=== PATIENT | male | born 1970 | race Caucasian/White ===

== ENCOUNTER → 2017-12-04 07:23 | Outpatient (CLI) | payer BC, SELFPAY ==
[2017-12-04 10:47] LABS: AST(SGOT) 17 U/L (15-37); Alanine Aminotransfer ALT/SGPT 44 U/L (16-61); Albumin, Serum 3.7 g/dL (3.2-5.0); Alkaline Phosphatase 43 U/L (45-117); Anion Gap 8 (5-15); BUN 16 mg/dL (7-18); BUN/Creat Ratio 23.4 RATIO (10-20); Calcium,Total 8.7 mg/dL (8.5-10.1); Chloride 105 mmol/L (98-107); Cholesterol 150 mg/dL (200); Creatinine, Serum 0.68 mg/dL (0.70-1.30); EST Glomerular Filtration Rate 131 mL/min (>60); Est Glom Filt Rate - Afr Amer 158 mL/min (>60); Globulin 3.7 g/dL (2.2-4.2); Glucose 198 mg/dL (74-106); High Density Lipoprotein 30 mg/dL; Protein, Total 7.4 g/dL (6.4-8.2); Sodium Level 140 mmol/L (136-145); Triglycerides 417 mg/dL
== END ==
PROVIDERS: Family Provider Family Medicine; PCP Family Medicine; Visit Provider Family Medicine
DX: E11.9 Type 2 diabetes mellitus without complications (principal)
CPT/HCPCS: 36415; 80053; 80061

== ENCOUNTER → 2018-03-20 06:16 | Outpatient (CLI) | payer BC, SELFPAY ==
--- NOTE | 2018-03-20 15:17 | NEURO ---
NCS and/or EMG Patient Report Ordering Doctor: Kurt Pink DATE OF SERVICE: 03/20/18 Hilario Nguyen is a 47-year-old male presents for electrodiagnostic testing of the right upper limb. He reports numbness in the right arm radiating from the elbow to the hand. He has a history of right carpal tunnel release. Electrodiagnostic findings: The right median motor nerve demonstrates normal distal latency and amplitude. Normal right ulnar motor response normal median and ulnar F wave. Normal sensory responses. Needle EMG testing reveals 1+ fibrillations in the right deltoid, right infraspinatus and right mid cervical paraspinals. Decreased recruitment pattern is noted in the right deltoid. Electrodiagnostic impression: This is an abnormal study 1. Electrodiagnostic findings are consistent with an acue right C5 radiculopathy. Recommend correlation with cervical spine imaging. 2. No electrodiagnostic evidence is noted for peripheral neuropathy, including carpal tunnel or cubital tunnel syndrome. If there are any further questions, please not hesitate to contact me
== END ==
PROVIDERS: Family Provider Family Medicine; PCP Family Medicine; Referring Provider Family Medicine; Visit Provider Family Medicine
DX: M79.601 Pain in right arm (principal)
CPT/HCPCS: 95886; 95910

== ENCOUNTER → 2018-05-13 09:29 | Outpatient (CLI) | payer BC, SELFPAY ==
[2018-05-13 12:43] LABS: ALB/GLOB Ratio 1.1 RATIO (0.9-2.4); AST(SGOT) 26 U/L (15-37); Alanine Aminotransfer ALT/SGPT 54 U/L (16-61); Alkaline Phosphatase 50 U/L (45-117); Anion Gap 12 (5-15); BUN 19 mg/dL (7-18); Calcium,Total 9.2 mg/dL (8.5-10.1); Chloride 105 mmol/L (98-107); Cholesterol 151 mg/dL (200); Creatinine, Serum 0.76 mg/dL (0.70-1.30); EST Glomerular Filtration Rate 116 mL/min (>60); Est Glom Filt Rate - Afr Amer 140 mL/min (>60); Globulin 3.7 g/dL (2.2-4.2); Glucose 152 mg/dL (74-106); High Density Lipoprotein 31 mg/dL; Protein, Total 7.7 g/dL (6.4-8.2); Sodium Level 141 mmol/L (136-145); Triglycerides 345 mg/dL; Very Low Density Lipoprotein 69 mg/dL (5-40)
--- OUTSIDE RECORDS SUMMARY | 2018-07-06 13:34 | XMS RPT_ITS ---
:1970 Author Organization [facility] Care Team Providers Name Role Phone NEVILLE LUCAS Referring Unavailable Neville Lucas Attending Unavailable Neville Lucas Referring Unavailable Neville Lucas Primary Care Unavailable Neville Lucas Attending Unavailable Neville Lucas Referring Unavailable Neville Lucas Primary Care Unavailable Neville Lucas Attending Unavailable Neville Lucas Primary Care Unavailable PROBLEMS PROBLEMS No Problem Records FoundPROCEDURES PROCEDURES No Procedure Records FoundRESULTS RESULTS COMPREHENSIVE METABOLIC Collected: 05/13/2018 Status: F Source: [place] 9:31 AM [facility] REPOSITORY Order Comment: Order Date: 02/18/18 Order Info: [id number] - CMP Order Info: [id number] - LIPID TYPE CODE TESTS RESULT OUT OF RANGE REFERENCE UNITS LAB L501.0100 74-106 mg/dL High GLU 152 Result Comment: Fasting Glucose result greater than or equal to 126 mg/dL suggests DIABETES MELLITUS per A.D.A. criteria. Please note revised GLUCOSE reference range effective 2017. LAB L501.1000 7-18 mg/dL High BUN 19 LAB L501.1100 0.70-1.30 mg/dL Normal CREAT,SERUM 0.76 Result Comment: The validity of the calculated GFR AND GFRAA in patients over 70 years has not been determined. Clinical correlation is essential. LAB L501.1110 >60 mL/min Normal EST GFR 116 Result Comment: Non- GFR Calc LAB L501.1115 >60 mL/min Normal EST GFR - AA 140 Result Comment: GFR Calc LAB L501.1300 10-20 RATIO High BUN/CRE 25.0 LAB L501.1500 6.4-8.2 g/dL T Normal PROT 7.7 LAB L501.1800 3.2-5.0 g/dL Normal ALB 4.0 LAB L501.1950 2.2-4.2 g/dL Normal GLOB 3.7 LAB L501.2000 0.9-2.4 RATIO Normal A/G 1.1 LAB L501.2200 8.5-10.1 mg/dL CA Normal 9.2 LAB L501.4100 15-37 U/L Normal AST 26 LAB L501.4305 45-117 U/L Normal ALK P 50 LAB L501.4405 16-61 U/L Normal ALT 54 LAB L501.4600 0.20-1.00 mg/dL T Normal BILI 0.50 LAB L501.5300 136-145 mmol/L NA Normal 141 LAB L501.5600 3.5-5.1 mmol/L K Normal 4.0 LAB L501.5900 98-107 mmol/L CL Normal 105 LAB L501.6100 21.0-32.0 mmol/L Normal CO2 24.0 LAB L501.6200 5-15 Normal GAP 12 Performed By: #### L500.4050, L500.4100 #### [facility] [address] [place], [place], [address] LIPID PROFILE Collected: 05/13/2018 Status: F Source: [place] 9:31 AM [facility] REPOSITORY Order Comment: Order Date: 02/18/18 Order Info: [id number] - CMP Order Info: [id number] - LIPID TYPE CODE TESTS RESULT OUT OF RANGE REFERENCE UNITS LAB L501.4900 200 mg/dL Normal CHOL 151 Result Comment: <200 mg/dL Desirable 200-240 mg/dL Borderline >240 mg/dL High Risk LAB L501.5000 mg/dL High TRIG 345 Result Comment: The drugs N-Acetylcysteine and Metamizole may falsely depress this assay. Serum Triglycerides Reference Interval Normal <150 mg/dL Borderline high 150 - 199 mg/dL High 200 - 499 mg/dL Very High > or = 500 mg/dL LAB L501.6400 mg/dL Low HDL 31 Result Comment: The drugs N-Acetylcysteine and Metamizole may falsely depress this assay. Reference Range HDL <40 mg/dL Low HDL Cholesterol HDL >or= 60 mg/dL High HDL Cholesterol LAB L501.6500 0-130 mg/dL Normal LDL 51 LAB L501.6600 5-40 mg/dL High VLDL 69 Performed By: #### L500.4050, L500.4100 #### [facility] [address] [place], [address] NCS AND/OR EMG Observed: 03/20/2018 Status: F Source: [place] PATIENT 3:21 PM [facility] REPOSITORY [facility] Pulmonary Services/Neurology [address] [facility] [place] [address] MR#: [id number] Acct: [id number] Name: RADHA WASHBURN JR Rep #: [id number] : 1970 47 From: Tara Anaya MD Referring Dr: Neville Lucas MD Status: REG CLI Ordering Dr: Date: Location: [facility] Sex: M C NCS and/or EMG Patient Report Ordering Doctor: Kurt Lucas DATE OF SERVICE: 03/20/18 Radha Washburn is a 47-year-old male presents for electrodiagnostic testing of the right upper limb. He reports numbness in the right arm radiating from the elbow to the hand. He has a history of right carpal tunnel release. Electrodiagnostic findings: The right median motor nerve demonstrates normal distal latency and amplitude. Normal right ulnar motor response normal median and ulnar F wave. Normal sensory responses. Needle EMG testing reveals 1+ fibrillations in the right deltoid, right infraspinatus and right mid cervical paraspinals. Decreased recruitment pattern is noted in the right deltoid. Electrodiagnostic impression: This is an abnormal study 1. Electrodiagnostic findings are consistent with an acue right C5 radiculopathy. Recommend correlation with cervical spine imaging. 2. No electrodiagnostic evidence is noted for peripheral neuropathy, including carpal tunnel or cubital tunnel syndrome. If there are any further questions, please not hesitate to contact me 03/20/18 1521 <Electronically signed by Tara Anaya MD> Date Tara Anaya MD CC: Tara Anaya; Neville Lucas MD Date Dictated: 03/20/181516 Date Transcribed: 03/20/181516 Hydrographer: AA Signed MRI CERVICAL SPINE WO Observed: 12/04/2017 Status: F Source: [place] 8:39 AM [facility] REPOSITORY * * *Final Report* * * DATE OF EXAM: Dec 04 2017 8:39AM [facility] [id number] - MRI CERVICAL SPINE WO IVCON / PROCEDURE REASON: radiculopathy * * * * Physician Interpretation * * * * EXAMINATION: MRI CERVICAL SPINE WO IVCON CLINICAL HISTORY: Radiculopathy. Neck pain. History of transverse myelitis. TECHNIQUE: Routine cervical spine MR protocol without gadolinium. MQ: [id number] COMPARISON: 08/21/2007 RESULT: Counting reference: Craniocervical junction. Alignment: Alignment is anatomic and unchanged. Craniocervical junction: Alignment at the craniocervical junction is within normal limits. Cord: Again noted is a patchy focus of hyperintensity within the cord at the C1 level on T2 and IR which now appears to be eccentric to the right of midline and this is associated with mild attenuation in caliber of the cord in contrast to that seen previously. A small additional patchy focus of hyperintensity is noted along the right lateral margin of the cord at the level of the C5 vertebral body on the axial gradient echo images that may have been present previously but evaluation is limited. The cervical and visualized upper thoracic spinal cord is otherwise within normal limits of signal intensity and morphology. No gadolinium was administered. Bone marrow signal/fracture: No evidence of pathologic marrow infiltration. No evidence of prior fracture. Cervical soft tissues: The paraspinal soft tissues are within normal limits. C2-C3: Canal and foramina are patent. C3-C4: Canal and foramina are patent. C4-C5: Canal and foramina are patent. C5-C6: Mild disc osteophyte complex abutting the ventral surface of the cord without significant cord compression. Neural foramina remain patent. C6-C7: Canal and foramina are patent. C7-T1: Canal and foramina are patent. 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 Suspicion of additional small isolated plaque at the C5 level which may have been present previously but evaluation is limited on the earlier study. Otherwise no clear evidence of intramedullary demyelinating disease in the cervical and upper thoracic spinal cord. Mild canal stenosis at C5-6. Hydrographer: PSCB Transcribe Date/Time: Dec 04 2017 9:08A Dictated by : RICCO WHITING MD This examination was interpreted and the report reviewed and electronically signed by: RICCO WHITING MD on Dec 04 2017 9:15AM EST [id number] PROGRESS Observed: 12/04/2017 Status: COMPLETED Source: [place] 8:37 AM [facility] REPOSITORY HNO ID: [id number] Author: Perri Cast (Rt) Service: (none) Author Type: Digital Experience Manager Type: Progress Notes Filed: 12/04/2017 8:37 AM Note Text: Radiology Service Progress Note PATIENT NAME: Radha Washburn DATE OF SERVICE: December 04, 2017 TIME: 8:37 AM PATIENT IDENTITY VERIFICATION COMPLETED USING TWO (2) METHODS: Patient confirmed name verbally and Date of . PATIENT GENDER DATA: Male PATIENT RELEVANT IMPLANT DATA REVIEWED: Yes RADIOLOGY DEPARTMENT: MR; Exam(s) Completed: Spine: Cervical spine PERIPHERAL IV DATA: Not applicable SIGNED BY: RT Serene December 04, 2017 8:37 AM COMPREHENSIVE METABOLIC Collected: 12/04/2017 Status: F Source: [place] 7:29 AM [facility] REPOSITORY Order Comment: Order Date: 08/02/17 Order Info: [id number] - CMP Order Info: [id number] - LIPID TYPE CODE TESTS RESULT OUT OF RANGE REFERENCE UNITS LAB L501.0100 74-106 mg/dL High GLU 198 Result Comment: Fasting Glucose result greater than or equal to 126 mg/dL suggests DIABETES MELLITUS per A.D.A. criteria. Please note revised GLUCOSE reference range effective 2017. LAB L501.1000 7-18 mg/dL Normal BUN 16 LAB L501.1100 0.70-1.30 mg/dL Low CREAT,SERUM 0.68 Result Comment: The validity of the calculated GFR AND GFRAA in patients over 70 years has not been determined. Clinical correlation is essential. LAB L501.1110 >60 mL/min Normal EST GFR 131 Result Comment: Non- GFR Calc LAB L501.1115 >60 mL/min Normal EST GFR - AA 158 Result Comment: GFR Calc LAB L501.1300 10-20 RATIO High BUN/CRE 23.4 LAB L501.1500 6.4-8.2 g/dL T Normal PROT 7.4 LAB L501.1800 3.2-5.0 g/dL Normal ALB 3.7 LAB L501.1950 2.2-4.2 g/dL Normal GLOB 3.7 LAB L501.2000 0.9-2.4 RATIO Normal A/G 1.0 LAB L501.2200 8.5-10.1 mg/dL CA Normal 8.7 LAB L501.4100 15-37 U/L Normal AST 17 LAB L501.4305 45-117 U/L Low ALK P 43 LAB L501.4405 16-61 U/L Normal ALT 44 LAB L501.4600 0.20-1.00 mg/dL T Normal BILI 0.40 LAB L501.5300 136-145 mmol/L NA Normal 140 LAB L501.5600 3.5-5.1 mmol/L K Normal 4.0 LAB L501.5900 98-107 mmol/L CL Normal 105 LAB L501.6100 21.0-32.0 mmol/L Normal CO2 27.0 LAB L501.6200 5-15 Normal GAP 8 Performed By: #### L500.4050, L500.4100 #### [facility] [address] [place], [place], [address] LIPID PROFILE Collected: 12/04/2017 Status: F Source: [place] 7:29 AM [facility] REPOSITORY Order Comment: Order Date: 08/02/17 Order Info: [id number] - CMP Order Info: [id number] - LIPID TYPE CODE TESTS RESULT OUT OF RANGE REFERENCE UNITS LAB L501.4900 200 mg/dL Normal CHOL 150 Result Comment: <200 mg/dL Desirable 200-240 mg/dL Borderline >240 mg/dL High Risk LAB L501.5000 mg/dL High TRIG 417 Result Comment: The drugs N-Acetylcysteine and Metamizole may falsely depress this assay. TRIGLYCERIDE IS GREATER THAN 400 mg/dL. LDL RESULT IS INVALID AND WILL NOT BE REPORTED. Serum Triglycerides Reference Interval Normal <150 mg/dL Borderline high 150 - 199 mg/dL High 200 - 499 mg/dL Very High > or = 500 mg/dL LAB L501.6400 mg/dL Low HDL 30 Result Comment: The drugs N-Acetylcysteine and Metamizole may falsely depress this assay. Reference Range HDL <40 mg/dL Low HDL Cholesterol HDL >or= 60 mg/dL High HDL Cholesterol LAB L501.6500 0-130 mg/dL Test Normal not performed LDL LAB L501.6600 5-40 mg/dL Test Normal not performed VLDL Performed By: #### L500.4050, L500.4100 #### [facility] [address] [place], [address] ALLERGIES ALLERGIES DATE TYPE / CODE NAME / CODE REACTION SEVERITY SOURCE Drug NO KNOWN [facility] Class/12731 ALLERGIES [facility] 1003(SNOMED Repository CT) ENCOUNTERS ENCOUNTERS ADMIT/DISCHARGE ACCOUNT ADMITTING ENCOUNTER LOCATION SOURCE NUMBER CLASS 05/13/2018 [id number] [facility] ing:MFPLAB Repository 03/20/2018 [id number] [facility] ing:PSN Repository 12/04/2017/12/06/[id number] [place] Repository 12/04/2017 [id number] [facility] ing:MTLAB Repository PAYERS PAYERS ENCOUNTER GUARANTOR PAYER SUBSCRIBER SOURCE 05/13/2018 RADHA WASHBURN Primary RADHA Cano [address] Insurance:ANTHEMPolic JRDOB: [place] Number: [id number] Hospital [address]Hcy: (655) [id number] Repository [phone] () Date:[id number] [place] [id number]: 05/13/2018 Secondary NOT GIVENUNK [place] Insurance:SELF PAY [facility] Number: Effective Repository Date:2018-05-13 03/20/2018 RADHA WASHBURN Primary RADHA WASHBURN [id number] Insurance:ANTHEMPolic JRDOB: [facility] Number: [id number] [id number]: 330 [id number] Repository [phone] () Date:[id number] [address] [place] [address] [id number]: 03/20/2018 Secondary NOT GIVENUNK [place] Insurance:SELF PAY [facility] Number: Effective Repository Date:2018-02-26 12/04/2017 Radha Washburn Primary RADHA WASHBURN [id number] Insurance:ANTHEMPolic JRDOB: [facility] Number: [id number] [id number]: 330 [id number] Repository [phone] () Date:[id number] [id number] [place] [id number]: 12/04/2017 Secondary NOT GIVENUNK [place] Insurance:SELF PAY [facility] Number: Effective Repository Date:2017-12-04
== END ==
PROVIDERS: Family Provider Family Medicine; PCP Family Medicine; Visit Provider Family Medicine
DX: E11.9 Type 2 diabetes mellitus without complications (principal)
CPT/HCPCS: 36415; 80053; 80061

== ENCOUNTER → 2018-11-08 08:06 | Outpatient (CLI) | payer MEDICAID, SELFPAY ==
--- NOTE | 2018-11-08 09:12 | RAD_ITS ---
STUDY: X-RAY - CERVICAL SPINE REASON FOR EXAM: Male, 48 years old. Prior cervical fusion. Follow-up examination. TECHNIQUE: 3 view(s) of the cervical spine were obtained. COMPARISON: None FINDINGS: Normal anterior atlantoaxial articulation. Normal odontoid process. There is straightening of the normal cervical lordosis. The patient is status post anterior fusion at the C5-C6 level with a prosthetic disc. Normal disc space heights. Normal visualized intervertebral neuroforamina. The soft tissue structures are unremarkable. RAD/Cerv Spine 2 or 3 Views IMPRESSION: Status post fusion at the C5-C6 level with prosthetic disc. Electronically Signed: Trenton Machuca, at 14:54 EDT , Service support ,
[2018-11-08 10:54] LABS: ALB/GLOB Ratio 1.2 RATIO (0.9-2.4); AST(SGOT) 19 U/L (15-37); Alanine Aminotransfer ALT/SGPT 47 U/L (16-61); Alkaline Phosphatase 56 U/L (45-117); Anion Gap 9 (5-15); BUN 19 mg/dL (7-18); BUN/Creat Ratio 25.9 RATIO (10-20); Calcium,Total 9.1 mg/dL (8.5-10.1); Chloride 104 mmol/L (98-107); Cholesterol 162 mg/dL (200); Creatinine, Serum 0.73 mg/dL (0.70-1.30); EST Glomerular Filtration Rate 120 mL/min (>60); Est Glom Filt Rate - Afr Amer 145 mL/min (>60); Globulin 3.4 g/dL (2.2-4.2); Glucose 155 mg/dL (74-106); High Density Lipoprotein 35 mg/dL; Potassium 3.9 mmol/L (3.5-5.1); Protein, Total 7.4 g/dL (6.4-8.2); Sodium Level 141 mmol/L (136-145); Triglycerides 308 mg/dL; Very Low Density Lipoprotein 62 mg/dL (5-40)
== END ==
PROVIDERS: Family Provider Family Medicine; PCP Family Medicine; Referring Provider Family Medicine; Visit Provider Family Medicine
DX: M50.30 Other cervical disc degeneration, unspecified cervical region (principal); E11.9 Type 2 diabetes mellitus without complications; E78.5 Hyperlipidemia, unspecified; Z98.1 Arthrodesis status
CPT/HCPCS: 36415; 72040; 80053; 80061

== ENCOUNTER → 2019-10-14 08:16 | Outpatient (CLI) | payer OTHER, MEDICAID, SELFPAY ==
[2019-10-14 10:12] LABS: ALB/GLOB Ratio 1.1 RATIO (0.9-2.4); AST(SGOT) 15 U/L (15-37); Alanine Aminotransfer ALT/SGPT 41 U/L (16-61); Albumin, Serum 3.9 g/dL (3.2-5.0); Alkaline Phosphatase 50 U/L (45-117); Anion Gap 5 (5-15); BUN 19 mg/dL (7-18); BUN/Creat Ratio 26.6 RATIO (10-20); Calcium,Total 9.2 mg/dL (8.5-10.1); Chloride 107 mmol/L (98-107); Cholesterol 167 mg/dL (200); Creatinine, Serum 0.71 mg/dL (0.70-1.30); EST Glomerular Filtration Rate 124 mL/min (>60); Est Glom Filt Rate - Afr Amer 149 mL/min (>60); Globulin 3.5 g/dL (2.2-4.2); Glucose 162 mg/dL (74-106); High Density Lipoprotein 35 mg/dL; Potassium 3.8 mmol/L (3.5-5.1); Protein, Total 7.4 g/dL (6.4-8.2); Sodium Level 140 mmol/L (136-145); Thyroid Stim Hormone (TSH) 1.43 uIU/mL (0.358-3.74); Triglycerides 269 mg/dL; Very Low Density Lipoprotein 54 mg/dL (5-40)
== END ==
PROVIDERS: PCP Family Medicine; Referring Provider Family Medicine; Visit Provider Family Medicine
DX: E11.9 Type 2 diabetes mellitus without complications (principal); E78.5 Hyperlipidemia, unspecified
CPT/HCPCS: 36415; 80053; 80061; 84403; 84443

== ENCOUNTER → 2020-02-13 | Outpatient (CLI) | payer OTHER, MEDICAID, SELFPAY ==
--- NOTE | 2020-02-13 | COLBX_PTH ---
PATIENT: RADHA WASHBURN Jr. LOC: [facility] U#:[id number] AGE/SX: 49/M ROOM: RE02/13/[address]: Dr. Héctor Eason MD : 1970 BED: DIS: 02/13/2020 SPEC #: [id number] RECD: 02/13/20 15:02 STATUS: YEYO ZAID #: [id number] AZAM: 02/13/20 00:[address]: Héctor Eason DEPT: SURGICAL PATHOLOGY RECD BY: Jose Saini ENTERED: 02/17/20 08:34 SP TYPE: COLON BX OTHR DR: Dr. Neville Pink MD [facility] Tissues: Sigmoid colon biopsy Procedures: Surgery Specimen Level IV HEADER OPERATION: Colonoscopy with biopsy PRE-OP DIAGNOSIS: Screening / polyp TISSUE SUBMITTED: Sigmoid colon polyp 25 cm MICROSCOPIC DIAGNOSIS Sigmoid colon polyp at 25 cm, biopsy: Tubular adenoma. Hyperplastic polyp. SJ:zahida 02/18/20 MICROSCOPIC DESCRIPTION Slides are reviewed. GROSS DESCRIPTION Received in fixative is one container labeled with the patient's name and designated sigmoid polyp at 25 cm. The specimen consists of three variably sized pieces of rodríguez-pink soft tissue measuring in aggregate 1.5 x 05 x 0.3 cm. The specimen is totally submitted in one cassette. / SJ:rg 02/17/20 TC:1 CPT: 68351
== END | disposition home or self-care (01) ==
LOC: LABSPEC 15:25
PROVIDERS: PCP Family Medicine; Referring Provider Internal Medicine Gastroenterology; Visit Provider Internal Medicine Gastroenterology
DX: Z12.11 Encounter for screening for malignant neoplasm of colon (principal); D12.5 Benign neoplasm of sigmoid colon; K63.5 Polyp of colon
CPT/HCPCS: 88305

== ENCOUNTER → 2020-04-07 06:29 | Outpatient (CLI) | payer OTHER, MEDICAID, SELFPAY ==
--- NOTE | 2020-04-07 06:44 | MRI_ITS ---
STUDY: MRI CERVICAL SPINE WITHOUT CONTRAST REASON FOR EXAM: Male, 49 years old. h/o transverse myellitis, cervical fusion now c/o R arm issues TECHNIQUE: Standardized fat and water weighted pulse sequences were obtained in the sagittal and axial planes. COMPARISON: 02/15/2007 FINDINGS: There is stable spinal cord hyperintensity posterior to C2. This lesion is dorsal and visualized on sagittal sequences only. There is no evidence of cord expansion. There are no demonstrated new lesions There is straightening of the normal cervical lordosis. C2-3: Normal endplates. Normal disc height, signal and morphology. Normal central canal and intervertebral neural foramina. C3-4: Normal endplates. Normal disc height, signal and morphology. Normal central canal and intervertebral neural foramina. C4-5: There is minimal disc space narrowing and endplate spondylosis. There is no significant disc herniation, central canal or foraminal stenosis. C5-6: There is now instrumented anterior fusion. There is no significant disc herniation, spinal canal or foramina stenosis. C6-7: There is minimal disc space narrowing and endplate spondylosis. There is no significant disc herniation, central canal or foraminal stenosis. C7-T1: Normal endplates. Normal disc height, signal and morphology. Normal central canal and intervertebral neural foramina. MRI/Spine Cervical (Routine) IMPRESSION: Stable spinal cord lesion at C1. No significant central canal or foraminal stenosis. C5/C6: Anterior fusion. Electronically Signed: Daniel Chandler MD at 15:55 EDT Tel , Service support ,
== END ==
PROVIDERS: PCP Family Medicine; Referring Provider Family Medicine; Visit Provider Family Medicine
DX: M54.12 Radiculopathy, cervical region (principal)
CPT/HCPCS: 72141

== ENCOUNTER → 2020-04-22 | Outpatient (CLI) | payer OTHER, MEDICAID, SELFPAY | END | disposition home or self-care (01) | LOC: LABSPEC 15:59 | PROVIDERS: PCP Family Medicine; Referring Provider Family Medicine; Visit Provider Family Medicine | DX: U07.1 COVID-19 (principal) | CPT/HCPCS: 87635; U0003 ==

== ENCOUNTER → 2020-06-08 08:03 | Outpatient (CLI) | payer OTHER, MEDICAID, SELFPAY ==
[2020-06-08 10:22] LABS: Anion Gap 5 (5-15); BUN 22 mg/dL (7-18); BUN/Creat Ratio 35.3 RATIO (10-20); Calcium,Total 9.8 mg/dL (8.5-10.1); Chloride 104 mmol/L (98-107); Cholesterol 185 mg/dL (200); Creatinine, Serum 0.62 mg/dL (0.70-1.30); EST Glomerular Filtration Rate 144 mL/min (>60); Est Glom Filt Rate - Afr Amer 174 mL/min (>60); Glucose 133 mg/dL (74-106); High Density Lipoprotein 43 mg/dL; PSA,Total - Annual Screen 0.71 ng/mL (0.00-4.00); Potassium 4.2 mmol/L (3.5-5.1); Sodium Level 138 mmol/L (136-145); Triglycerides 298 mg/dL; Very Low Density Lipoprotein 60 mg/dL (5-40)
== END ==
PROVIDERS: PCP Family Medicine; Referring Provider Family Medicine; Visit Provider Family Medicine
DX: E11.9 Type 2 diabetes mellitus without complications (principal); Z12.5 Encounter for screening for malignant neoplasm of prostate
CPT/HCPCS: 36415; 80048; 80061; 84153; G0103

== ENCOUNTER → 2020-06-08 17:43 | Outpatient (CLI) | payer OTHER, MEDICAID, SELFPAY ==
--- NOTE | 2020-06-08 17:46 | MRI_ITS ---
Right shoulder pain and decreased range of motion MRI EXAMINATION OF [facility] SHOULDER COMPARISON: None TECHNIQUE: coronal fat-suppressed proton density, fat-suppressed T2, axial fat-suppressed proton density and T2 and sagittal T2 weighted images # of images including paperwork:137 FINDINGS: Bones: No evidence of an acute fracture. There are subchondral cysts seen involving the anterior inferior glenoid. Marrow edema is seen at the inferior half of the glenoid at the articular surface Rotator cuff: The supraspinatus and infraspinatus tendons are intact. The teres minor tendon is also intact. There is thickening of the subscapularis tendon suspect for tendinosis. No discrete tear is noted. No evidence of muscle atrophy Coracoacromial arch and Acromioclavicular joint: The acromion demonstrates Bigliani Type 2 morphology. There is mild acromioclavicular arthropathy. No significant fluid is seen within the subacromial subdeltoid bursa. The coracoacromial ligament is not thickened. The humeral distance is maintained. The Caraco humeral distance is maintained Biceps tendon: The extraarticular tendon is within the bicipital groove.there is minimal fluid surrounding the tendon that can be seen with tenosynovitis of that can also be seen secondary to fluid in the joint space. Slight increased signal on fluid-weighted images within the intra-articular tendon suggesting tendinosis. The short head of the biceps tendon is unremarkable Glenohumeral joint and labrum: There is a joint effusion. Probable degenerative posterior labrum seen on axial image 7 and coronal image 7. There is diffuse articular cartilage loss with full-thickness articular cartilage loss seen at the anterior inferior glenoid extending approximately 3 mm craniocaudad and approximately 5 mm transverse. The anterior and posterior bands of the inferior glenohumeral ligament appear intact. There is a small joint effusion present. CONCLUSION: Probable tendinosis involving the subscapularis tendon. No atrophy There is a small joint effusion Articular cartilage loss is seen at the anterior inferior glenoid with sub-chondral edema that is seen at the inferior aspect of the glenoid. Probable degenerative tear involving the posterior inferior labrum There may be mild synovitis Minimal acromioclavicular arthropathy Small medial inferior humeral head spur. Tendinosis of the intra-articular bicipital tendon There is fluid surrounding the extra-articular tendon that may be secondary to joint effusion versus tenosynovitis at 0451 Reported and signed by: Nancy Peterson DO Electronically Signed: Nancy Peterson DO at 4:49 EST Tel , Service support , MRI/Upper Ext Joint Only(Routine)
== END ==
PROVIDERS: PCP Family Medicine; Referring Provider Family Medicine; Visit Provider Family Medicine
DX: M25.511 Pain in right shoulder (principal)
CPT/HCPCS: 73221

== ENCOUNTER 2020-08-27 07:00 | Outpatient (RCR) | payer OTHER, MEDICAID, SELFPAY ==
--- NOTE | 2020-07-09 16:36 | HP.PTEVAL_ITS ---
Patient's Visit Information RADHA WASHBURN Jr. is a 49 year old M referred to Physical Therapy by Dr. Kurt Pink MD with a diagnosis of RT SHLD PAIN. Date of Evaluation: 07/09/20 Physical Therapist: Carleen Corona PT, Cert MDT - Visit Plan Frequency: 1x/Week Duration: 4-6 Weeks Plan: POSTURE CORRECTION/STRENGTHENING, INSTRUCTION IN APPROPRIATE BODY MECHANICS AND ACTIVITY MODIFICATIONS. ESTELLE UE ROM, STRETCHING AND STRENGTHENING. HEP INSTRUCTION. PATIENT REPORTS HE TRAVELS A LOT FOR WORK AND CAN ONLY COME TO PT ONE TIME A WEEK. - Subjective Diagnosis: RIGHT SHOULDER PAIN. Work/Leisure: AFTERSCHOOL BABYSITTER. PHYSICAL JOB. LUGS AROUND TOOL BOXES WEIGHING 80 TO 90 LBS EA. Disability: ON DIS[facility] - 20%. Present symptoms: PAIN IN RIGHT SHOULDER. NO NECK PAIN. CONSTANT RIGHT UE NUMBNESS FROM THE ELBOW DOWN SINCE 2005 (UNRELATED?). Present since: ABOUT 6 MONTHS AGO. Pain Scale: Worst - 12/10 Least - 2/10. Currently: 07/21. Commenced as a result of: NO APPARENT REASON. Symptoms at onset: SAME. Worse: RAISING RIGHT ARM UP, REACHING OUT FORWARD, REACHING BEHIND HEAD. Better: SITTING RELAXES - NOT MOVING IT. Disturbed sleep: YES. 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 EFFECTED RIGHT UE BUT ALL SX'S RESOLVED EXCEPT NUMBNESS FROM THE RIGHT ELBOW DOWN. WENT TO PAIN MGMT AND DX'D WITH PINCHED NERVE, HAD MRI, INJECTIONS AND IT DIDN'T HELP. 2018 WAS IN A LOT OF PAIN WITH NECK PAIN AND SX'S ALL THE WAY DOWN THE RIGHT UE WHICH LED TO NECK FUSION JUL [address] JAXSON CHAVEZ. PATIENT REPORTS HE THINKS HIS NECK AND RIG HT UE SX'S INCLUDING THE NUMBNESS IS SLOWLY GETTING SOME BETTER. H/O LEFT SHLD PAIN AND MILD TEAR OF ROTATOR CUFF 2013 - UNREPAIRED - CORTISONE SHOT AND PT HELPED. NO CURRENT ISSUES WITH L SHLD. This episode: CORTISONE RIGHT SHLD THAT HELPED FOR ABOUT 2 WEEKS ONLY - IT REALLY DIDN'T DUE MUCH OF ANYTHING. PT CONSULT ORDERED. R SHLD ORTHO CONSULT ALSO ORDERED BUT PATIENT REPORTS HE HAS DECLINED SETTING IT UP UNTIL HE GOES THROUGH PT FIRST. Dizziness: NO. Tinnitis: NO. Nausea: NO. Shortness of Breath: NO. Difficulty Swollowing: NO. Gait: NORMAL. Accidents: NO. Unexplained weight loss: NO. Imaging: RECENT RIGHT SHLD MRI - SEE [facility] EMR SHOWING MULTIPLE POSTIVE FINDINGS. PMH/Recent major surgery: MAR 2020 COVID - NOT HOSPITALIZED. OTHER: PATIENT REPORTS HE REALLY IS HAVING A LOT OF PAIN IN THE FRONT OF HIS RIGHT SHOULDER AND THAT IS WHY HE IS HERE. - Objective Sitting Posture/Standing Posture: POOR. FH. RS'S. Other Observations: INDEP GAIT AND TRANSFERS. Motor deficit: L UE WFL. RIGHT SHLD FLEX 3+/5, ABD 3-/5, ER 2+/5, IR 4/5, ELBOW 4/5, SLUICE TENDER 60LBS. ESTELLE SLUICE TENDER 60LBS. Sensory deficit: ESTELLE UE LIGHT TOUCH SENSATION APPEARS INTACT AND SYMMETRICAL BUT PATIENT REPORTS STILL FEELING NUMBNESS IN THE RIGHT UE FROM THE ELBOW DOWN. HE REPORTS HIS RIGHT UE SENSATION HAS BEEN IMPROVING SINCE HIS NECK FUSION. ROM deficit: LEFT UE WFL. RIGHT UE AROM WFL BUT PAINFUL EXCEPT R SHLD IR LIMITED TO APPROX 25 DEG IN LYING WITH SHLD ABD 80 DEG. Postural strength: POOR. Palpation: NO ACUTE TENDERNESS WITH PALPATION OF RIGHT SHOULDER REGION. - Goals Goal 1:: DECREASE C/O RIGHT SHOULDER PAIN Goal Time Frame: 4-6 Weeks Goal 2:: IMPROVE RIGHT UE FUNCTIONAL ROM Goal Time Frame: 4-6 Weeks Goal 3:: IMPROVE RIGHT UE FUNCTIONAL STRENGTH Goal Time Frame: 4-6 Weeks Goal 4:: PATIENT WILL BE INDEP WITH A HEP FOR CONTINUED IMPROVEMENT ONCE FORMAL PHYSICAL THERAPY CONCLUDES. Goal Time Frame: 4-6 Weeks - Anticipated Interventions Patient/Client Instruction: Educate patient on: Condition, Plan of Care, Risk Factors, Benefits of Fitness Program For the Purpose of:: To improve self management Therapeutic Exercise to Include: Strength training, Body mechanics, Postural training, Flexibilty training, Neuromotor development, Passive ROM, Active ROM, Scapular Strength/Stabilization For the Purpose of:: To decrease pain, To increase ROM, To improve muscle performance and motor function, To increase tolerance to activit y/condition/position, To improve ability of physical actions for home/community/work/leisure Cryotherapy (ice pack, ice massage): Yes Thermo therapy (hot pack): Yes For the Purpose of:: To decrease pain, To decrease swelling/inflammation, To improve nutrient delivery to tissue Thank you for the opportunity to evaluate your patient. For Medicare and Medicare HMO plans, please review the plan of care and approve it. It will need to be FAXED BACK to us at [phone] for Medicare purposes. For Medicare only, by signing this I certify the plan of care. Please let me know if there are questions or concerns regarding this plan of care. Physician Signature: Date:
--- NOTE | 2020-08-27 08:39 | HP.PTDCSUM ---
It has been my pleasure to treat RADHA WASHBURN Jr. referred by Dr. Kurt Pink MD, with the diagnosis of RT SHLD PAIN for a total of 5 visit(s). Discharge Date: 08/27/20 Please see the following information for a summary of their discharge status. Subjective: PATIENT REPORTS HE IS DOING A LOT BETTER. STATES HE IS DOING GOOD NOW AND IS GOING TO BE GONE FOR TWO WEEKS AGAIN FOR WORK. STATES HE HAS BEEN SWIMMING AND THAT IS HELPING A LOT. ALSO REPORTS HE IS DOING HIS HEP. NO PAIN RIGHT NOW - JUST TIGHTNESS. STATES IT DOES GET THIGHT IF HE ACCIDENTALLY SLEEPS ON IT. STATES SWIMMING HAS REALLY HELPED. STATES HE IS EXHAUSTED TODAY AND DOES NOT WANT TO EX. JUST WANTS ICE AND FEELS READY TO BE DISCHARGED. I ACTUALLY FEEL LIKE MY FINE MOTOR SKILLS IN MY RIGHT HAND ARE GETTING BETTER. ABLE TO ACTUALLY ADJUST SMALL SCREWS WITH R HAND BETTER. % Improvement: 80 Objective/Function: REVIEWED HEP AND. PATIENT WAS SEEN TODAY FOR RE-ASSESSMENT OF PROGRESS TOWARD THE SET PT GOALS AND THE NEED FOR FURTHER PHYSICAL THERAPY VS READINESS FOR DISCHARGE. PATIENT IS INDEP WITH A HEP AND ALL GOALS HAVE BEEN MET. UPON EXAM TODAY: Motor deficit: L UE WFL. RIGHT SHLD FLEX 4/5, ABD 4/5, ER 4/5, IR 5/5, ELBOW 5/5, SENIOR BOOKKEEPER 60LBS. ESTELLE SENIOR BOOKKEEPER 60LBS. Sensory deficit: ESTELLE UE LIGHT TOUCH SENSATION APPEARS INTACT AND SYMMETRICAL BUT PATIENT REPORTS STILL FEELING NUMBNESS IN THE RIGHT UE FROM THE ELBOW DOWN. HE REPORTS HIS RIGHT UE SENSATION HAS BEEN IMPROVING SINCE HIS NECK FUSION. ROM deficit: LEFT UE WFL. RIGHT UE AROM WFL BUT PAINFUL EXCEPT R SHLD IR LIMITED TO APPROX 57 DEG IN LYING WITH SHLD ABD 90 DEG. Postural strength: POOR. Palpation: NO ACUTE TENDERNESS WITH PALPATION OF RIGHT SHOULDER REGION. OTHER: INSTRUCTED IN ADDED SLEEPER STRETCH FOR IR STRETCHING. CP TO R SHLD IN SITTING X 8 MIN. Goal 1:: DECREASE C/O RIGHT SHOULDER PAIN Goal Progress: Goal Met Goal 2:: IMPROVE RIGHT UE FUNCTIONAL ROM Goal Progress: Goal Met Goal 3:: IMPROVE RIGHT UE FUNCTIONAL STRENGTH Goal Progress: Goal Met Goal 4:: PATIENT WILL BE INDEP WITH A HEP FOR CONTINUED IMPROVEMENT ONCE FORMAL PHYSICAL THERAPY CONCLUDES. Goal Progress: Goal Met Plan: D/C TO HEP. PATIENT IS AGREEABLE. If there are questions or concerns regarding this patient's physical therapy, please feel free to call me at [phone]. Thank you for the referral of this patient. Sincerely, Carleen Corona PT, Cert MDT
== END 2020-08-27 19:00 | disposition home or self-care (01) ==
LOC: PT 07:00
PROVIDERS: PCP Family Medicine; Referring Provider Family Medicine; Visit Provider Family Medicine
DX: M25.511 Pain in right shoulder (principal)
CPT/HCPCS: 97110; 97162; 97164

== ENCOUNTER → 2020-09-29 10:13 | Outpatient (CLI) | payer OTHER, MEDICAID, SELFPAY ==
--- NOTE | 2020-09-29 10:15 | RAD_ITS ---
STUDY: X-RAY - LEFT HAND REASON FOR EXAM: Male, 49 years old. Hand pain. TECHNIQUE: 3 view(s) of the hand. COMPARISON: None. FINDINGS: Normal radiocarpal articulation. Normal distal radioulnar joint. Normal visualized carpal bones. Normal carpal articulations Normal carpometacarpal articulation of the thumb. Normal second through fifth carpometacarpal joints. Normal metacarpi. Normal metacarpophalangeal joint of the thumb. Normal interphalangeal joint of the thumb. Normal proximal and distal phalanges of the thumb. Normal metacarpophalangeal joints of the second through fifth fingers. Normal proximal and distal interphalangeal joints of the second through fifth fingers. Normal phalanges of the second through fifth fingers. The soft tissue structures are unremarkable. RAD/Hand Min 3 Views IMPRESSION: No abnormality of the left hand. Electronically Signed: Adiel Sam MD at 15:28 EDT , Service support ,
== END ==
PROVIDERS: PCP Family Medicine; Referring Provider Family Medicine; Visit Provider Family Medicine
DX: M79.642 Pain in left hand (principal)
CPT/HCPCS: 73130

== ENCOUNTER → 2021-02-19 07:17 | Outpatient (CLI) | payer BC, MEDICAID, SELFPAY ==
[2021-02-19 08:56] LABS: AST(SGOT) 32 U/L (15-37); Alanine Aminotransfer ALT/SGPT 48 U/L (16-61); Alkaline Phosphatase 57 U/L (45-117); Anion Gap 5 (5-15); BUN 20 mg/dL (7-18); BUN/Creat Ratio 25.4 RATIO (10-20); Calcium,Total 9.5 mg/dL (8.5-10.1); Chloride 106 mmol/L (98-107); Cholesterol 176 mg/dL (200); Creatinine, Serum 0.79 mg/dL (0.70-1.30); EST Glomerular Filtration Rate 110 mL/min (>60); Est Glom Filt Rate - Afr Amer 133 mL/min (>60); Glucose 164 mg/dL (74-106); High Density Lipoprotein 35 mg/dL; Sodium Level 140 mmol/L (136-145); Thyroid Stim Hormone (TSH) 1.38 uIU/mL (0.358-3.74); Triglycerides 754 mg/dL
[2021-02-21 08:46] LABS: Vitamin B12 714 pg/mL (211-911)
== END ==
PROVIDERS: PCP Family Medicine; Referring Provider Family Medicine; Visit Provider Family Medicine
DX: E11.65 Type 2 diabetes mellitus with hyperglycemia (principal); Z12.5 Encounter for screening for malignant neoplasm of prostate
CPT/HCPCS: 36415; 80053; 80061; 82607; 84403; 84443

== ENCOUNTER → 2021-05-10 07:01 | Outpatient (CLI) | payer BC, MEDICAID, SELFPAY ==
[2021-05-10 10:18] LABS: Cholesterol 182 mg/dL (200); High Density Lipoprotein 33 mg/dL; Triglycerides 410 mg/dL
== END ==
PROVIDERS: PCP Family Medicine; Referring Provider Family Medicine; Visit Provider Family Medicine
DX: E11.69 Type 2 diabetes mellitus with other specified complication (principal)
CPT/HCPCS: 36415; 80061

== ENCOUNTER 2021-06-13 11:39 | Outpatient (RCR) | payer BC, MEDICAID, SELFPAY | END 2021-07-11 23:59 | LOC: DC 11:39 | PROVIDERS: PCP Family Medicine; Visit Provider Family Medicine | DX: E11.9 Type 2 diabetes mellitus without complications (principal); Z71.3 Dietary counseling and surveillance | CPT/HCPCS: 97802 ==

== ENCOUNTER → 2023-02-19 | Outpatient (CLI) | payer OTHER, MEDICAID, SELFPAY ==
--- NOTE | 2023-02-19 16:52 | RAD_ITS ---
STUDY: X-RAY - RIGHT ANKLE REASON FOR EXAM: Male, 52 years old. Pain TECHNIQUE: 3 view(s) of the ankle. COMPARISON: None. FINDINGS: A well-corticated density distal to the fibula that measures 8 mm. There is a punctate calcific density distal to the fibula which may represent a prior avulsion injury. Normal medial and lateral malleoli. Normal tibiotalar articulation and ankle mortise. There is a small Achilles spur. Normal visualized talus and calcaneus. The visualized subtalar, talonavicular, calcaneocuboid and tarsal articulations are normal. The soft tissue structures are unremarkable. RAD/Ankle min 3 Views IMPRESSION: Findings suspicious for possible prior injuries of the medial and lateral malleolus. No definitive evidence of an acute fracture. Electronically Signed: Nancy Apple MD at 17:42 EDT ,
--- NOTE | 2023-02-19 16:53 | RAD_ITS ---
STUDY: X-RAY - RIGHT FOOT CLINICAL: Male, 52 years old. Pain TECHNIQUE: 3 view(s) of the foot. COMPARISON: None. FINDINGS: An elongated appearance of the navicular bone. On the oblique view there is a suggestion there may be a pseudoarticulation with the talus not as apparent on the AP view. There is a minimal Achilles spur. Normal visualized subtalar, talonavicular, calcaneocuboid, tarsal and tarsometatarsal articulations. Normal metatarsi. Normal metatarsophalangeal joint of the great toe. Normal tibial and fibular sesamoid bones. Normal interphalangeal joint of the great toe. Normal phalanges of the great toe. Normal second through fifth metatarsophalangeal joints. Normal interphalangeal joints and phalanges of the lesser toes. The soft tissue structures are unremarkable. RAD/Foot min 3 Views IMPRESSION: Possible pseudoarticulation of the navicular with the talus versus summation artifact. Mild soft tissue edema about the foot. No visualized acute fracture. Electronically Signed: Nancy Apple MD at 17:41 EDT Reading Location ID and State: [facility] / [place] Tel , Service support ,
== END | disposition home or self-care (01) ==
LOC: MTRAD 16:52
PROVIDERS: PCP Family Medicine; Referring Provider Physician Assistant; Visit Provider Physician Assistant
DX: M79.601 Pain in right arm (principal); M25.571 Pain in right ankle and joints of right foot
CPT/HCPCS: 73610; 73630

== ENCOUNTER → 2023-05-23 | Outpatient (CLI) | payer OTHER, MEDICAID, SELFPAY ==
[2023-05-23 11:01] LABS: Vitamin B12 615 pg/mL (211-911)
[2023-05-23 11:50] LABS: ALB/GLOB Ratio 1.1 RATIO (0.9-2.4); AST(SGOT) 17 U/L (15-37); Alanine Aminotransfer ALT/SGPT 33 U/L (16-61); Alkaline Phosphatase 54 U/L (45-117); Anion Gap 7 (5-15); BUN 18 mg/dL (7-18); BUN/Creat Ratio 25.7 RATIO (10-20); Calcium,Total 9.3 mg/dL (8.5-10.1); Chloride 107 mmol/L (98-107); Cholesterol 117 mg/dL (200); EST Glomerular Filtration Rate 124 mL/min (>60); Est Glom Filt Rate - Afr Amer 151 mL/min (>60); Globulin 3.6 g/dL (2.2-4.2); Glucose 163 mg/dL (74-106); High Density Lipoprotein 40 mg/dL; PSA,Total- Diagnostic 0.79 ng/mL (0.0-4.0); Potassium 4.9 mmol/L (3.5-5.1); Protein, Total 7.6 g/dL (6.4-8.2); Sodium Level 140 mmol/L (136-145); Thyroid Stim Hormone (TSH) 1.15 uIU/mL (0.358-3.74); Triglycerides 206 mg/dL; Very Low Density Lipoprotein 41 mg/dL (5-40)
== END | disposition home or self-care (01) ==
LOC: MFPLAB 08:20
PROVIDERS: PCP Family Medicine; Visit Provider Family Medicine
DX: Z00.00 Encounter for general adult medical examination without abnormal findings (principal); E11.9 Type 2 diabetes mellitus without complications; Z12.5 Encounter for screening for malignant neoplasm of prostate
CPT/HCPCS: 36415; 80053; 80061; 82607; 84153; 84403; 84443

== ENCOUNTER → 2023-12-28 | Outpatient (CLI) | payer OTHER, SELFPAY ==
--- NOTE | 2023-12-28 07:26 | US_ITS ---
STUDY: SUPERFICIAL ULTRASOUND - TWO-WEEK HISTORY OF A RIGHT AXILLARY PAIN. REASON FOR EXAM: Male, 53 years old. Pain, mass inferior axilla TECHNIQUE: A superficial ultrasound was performed with real-time and static mcintosh-scale imaging. COMPARISON: None. FINDINGS: The axillary region of the breast was examined with ultrasound. There is a 2.2 cm by 2 cm x 1.3 cm lymph node with a prominent vascularity. There is evidence of a fatty hilum. This may represent an inflammatory enlarged lymph node. There is also evidence of a 1.8 cm x 1.4 cm x 1 cm benign-appearing axillary lymph nodes. US/Ext Non Vasc Limited/Soft Tiss IMPRESSION: Prominent 2.2 cm x 2 cm x 1.3 cm right axillary lymph node with increased vascularity. This most likely is inflammatory. Follow-up recommended in 3 months. Electronically Signed: Trenton Machuca MD at 12:15 EDT ,
== END | disposition home or self-care (01) ==
LOC: US 07:25
PROVIDERS: PCP Family Medicine; Referring Provider Family Medicine; Visit Provider Family Medicine
DX: R22.31 Localized swelling, mass and lump, right upper limb (principal)
CPT/HCPCS: 76882

== ENCOUNTER → 2024-01-25 | Outpatient (CLI) | payer OTHER, SELFPAY ==
--- NOTE | 2024-01-25 06:45 | MRI_ITS ---
STUDY: MRI CERVICAL SPINE WITHOUT CONTRAST REASON FOR EXAM: Male, 53 years old. RADICULOPATHY, PRIOR CERVICAL SX TECHNIQUE: Standardized fat and water weighted pulse sequences were obtained in the sagittal and axial planes. COMPARISON: April 07, 2020 FINDINGS: Normal foramen magnum and brainstem-cervical cord junction. Normal craniovertebral junction. Normal anterior atlantoaxial articulation. Normal odontoid process. There is straightening of the normal cervical lordosis. There is anterior cervical fusion at C5-6 with susceptibility artifact associated with fixation plate and screws. Normal vertebral bodies and posterior osseous elements. C2-3: Normal endplates. Normal disc height, signal and morphology. Normal central canal and intervertebral neural foramina. C3-4: Normal endplates. Normal disc height, signal and morphology. Normal central canal and intervertebral neural foramina. C4-5: Normal endplates. Normal disc height, signal and morphology. Normal central canal and intervertebral neural foramina. C5-6: Anterior fusion. Normal central canal and intervertebral neural foramina. C6-7: Normal endplates. Normal disc height, signal and morphology. Normal central canal and intervertebral neural foramina. C7-T1: Normal endplates. Normal disc height, signal and morphology. Normal central canal and intervertebral neural foramina. There is stable increased T2 signal within the posterior aspect of the cervical cord at the C1 level. Normal visualized soft tissue structures. MRI/Spine Cervical (Routine) IMPRESSION: Stable postoperative changes. No disc herniation. No canal stenosis or foraminal narrowing. Stable demyelination or myelomalacia of the cervical cord at C1. Electronically Signed: Silvestre Radford MD at 10:44 EDT ,
== END | disposition home or self-care (01) ==
LOC: MRI 06:20
PROVIDERS: PCP Family Medicine; Referring Provider Family Medicine; Visit Provider Family Medicine
DX: M54.12 Radiculopathy, cervical region (principal)
CPT/HCPCS: 72141

== ENCOUNTER → 2024-07-15 | Outpatient (CLI) | payer OTHER, SELFPAY ==
--- NOTE | 2024-07-15 17:48 | US_ITS ---
PROCEDURE: ULTRASOUND RIGHT UPPER EXTREMITY NONVASCULAR LIMITED/SOFT TISSUE REASON FOR EXAM: Right axillary lymph nodes. TECHNIQUE: Real-time grayscale and color imaging was performed. Routine image documentation. COMPARISON: None. FINDINGS: Normal-appearing lymph nodes are noted in the right axilla. No abnormal cortical thickening. No hypervascularity. US/Ext Non Vasc Limited/Soft Tiss IMPRESSION: 1. No suspicious lymphadenopathy. Reading Location: [facility]
== END | disposition home or self-care (01) ==
LOC: US 17:47
PROVIDERS: PCP Family Medicine; Referring Provider Family Medicine; Visit Provider Family Medicine
DX: R59.0 Localized enlarged lymph nodes (principal)
CPT/HCPCS: 76882

== ENCOUNTER → 2024-10-04 | Outpatient (CLI) | payer BC, SELFPAY ==
[2024-10-04 11:20] LABS: ALB/GLOB Ratio 1.7 RATIO (0.9-2.4); AST(SGOT) 18 U/L (<=37); Alanine Aminotransfer ALT/SGPT 20 U/L (<=46); Albumin, Serum 4.4 g/dL (3.5-5.0); Alkaline Phosphatase 53 U/L (40-129); Anion Gap 11 (5-15); BUN 18 mg/dL (4-19); BUN/Creat Ratio 26.5 RATIO (10-20); Calcium,Total 9.7 mg/dL (7.6-11.0); Carbon Dioxide 24.9 mmol/L (21.0-32.0); Chloride 102 mmol/L (98-108); Creatinine, Serum 0.69 mg/dL (0.70-1.20); EST Glomerular Filtration Rate 109 (>60); Globulin 2.6 g/dL (2.2-4.2); Glucose 181 mg/dL (70-99); PSA,Total - Annual Screen 0.59 ng/mL (0.02-4.00); Potassium 4.6 mmol/L (3.3-5.1); Sodium Level 138 mmol/L (133-145); Total Bilirubin 0.54 mg/dL (0.00-1.30)
== END | disposition home or self-care (01) ==
LOC: LAB 09:49
PROVIDERS: PCP Family Medicine; Referring Provider Family Medicine; Visit Provider Family Medicine
DX: E11.9 Type 2 diabetes mellitus without complications (principal); Z12.5 Encounter for screening for malignant neoplasm of prostate
CPT/HCPCS: 36415; 80053; 84153; 84403; 84443; G0103

== ENCOUNTER → 2025-04-06 | Outpatient (CLI) | payer BC, SELFPAY ==
[2025-04-06 12:59] LABS: Cholesterol 107 mg/dL (<=200); Low Density Lipoprotein Calc. 44 mg/dL; Triglycerides 148 mg/dL; Very Low Density Lipoprotein 30 mg/dL (5-40); cholesterol:hdl ratio screen 2.88
== END | disposition home or self-care (01) ==
LOC: MTLAB 10:50
PROVIDERS: PCP Family Medicine; Referring Provider Family Medicine; Visit Provider Family Medicine
DX: Z01.84 Encounter for antibody response examination (principal); E11.9 Type 2 diabetes mellitus without complications
CPT/HCPCS: 36415; 80061; 86706